=== PATIENT | male | born 1960 | race Caucasian/White ===

== ENCOUNTER 2017-07-13 16:25 | Emergency (ER) | payer MEDICAID ==
[~2017-07-13] VITALS: Ht 188 cm; Wt 81.5 kg
[2017-07-13] MEDS ORDERED: normal saline 1000ML IV soln IV ONE (16:55)
[2017-07-13] MEDS ORDERED: ondansetron/PF 4mg/2ml inj IV ONE (18:10)
[2017-07-13] MEDS ORDERED: normal saline 1000ML IV soln IVB ONE (18:10)
[2017-07-13] MEDS ORDERED: LORazepam 2 mg/ml vial IV ONE (18:10)
[2017-07-13] MEDS ORDERED: iohexol 300mg/ml 100ml inj. ONE (18:32)
[2017-07-13 18:46] VITALS: BP 115/64
== END 2017-07-13 19:23 | disposition left against medical advice (07) ==
LOC: ER 16:26
DX: G89.4 Chronic pain syndrome (principal); M79.601 Pain in right arm; F17.210 Nicotine dependence, cigarettes, uncomplicated; F15.10 Other stimulant abuse, uncomplicated; F11.10 Opioid abuse, uncomplicated; Z86.14 Personal history of Methicillin resistant Staphylococcus aureus infection; Z59.0 Homelessness; Z56.0 Unemployment, unspecified; Z88.8 Allergy status to other drugs, medicaments and biological substances
CPT/HCPCS: 99281; J7030; Q9967

== ENCOUNTER 2017-07-14 12:39 | Emergency (ER) | payer MEDICAID | END 2017-07-14 13:55 | disposition left against medical advice (07) | LOC: ER 12:40 | DX: Z53.21 Procedure and treatment not carried out due to patient leaving prior to being seen by health care provider (principal) ==

== ENCOUNTER 2017-11-19 23:13 | Emergency (ER) | payer MEDICAID ==
[~2017-11-19] VITALS: Ht 188 cm; Wt 85.5 kg
[~2017-11-19 23:13] MED LIST: PERM60CR19 TP
[2017-11-19 23:31] VITALS: BP 113/63
== END 2017-11-20 00:26 | disposition home or self-care (01) ==
LOC: ER 23:13
DX: M25.571 Pain in right ankle and joints of right foot (principal); F15.10 Other stimulant abuse, uncomplicated; F19.10 Other psychoactive substance abuse, uncomplicated; Z88.6 Allergy status to analgesic agent; Z88.8 Allergy status to other drugs, medicaments and biological substances
CPT/HCPCS: 73610; 99284; A6449

== ENCOUNTER 2017-11-20 21:20 | Emergency (ER) | payer MEDICAID ==
[~2017-11-20] VITALS: Ht 188 cm; Wt 85.5 kg
[2017-11-20 21:25] VITALS: BP 130/85
== END 2017-11-20 22:09 | disposition home or self-care (01) ==
LOC: ER 21:20
DX: S90.02XD Contusion of left ankle, subsequent encounter (principal); G89.29 Other chronic pain; F15.90 Other stimulant use, unspecified, uncomplicated; F11.90 Opioid use, unspecified, uncomplicated; Z86.14 Personal history of Methicillin resistant Staphylococcus aureus infection; Z56.0 Unemployment, unspecified; Z59.0 Homelessness; Z98.890 Other specified postprocedural states; Z88.8 Allergy status to other drugs, medicaments and biological substances; Z79.899 Other long term (current) drug therapy; Z60.2 Problems related to living alone; X58.XXXD Exposure to other specified factors, subsequent encounter
CPT/HCPCS: 99281

== ENCOUNTER 2017-12-13 12:10 | Emergency (ER) | payer MEDICAID ==
[~2017-12-13] VITALS: Ht 188 cm; Wt 88.6 kg
[2017-12-13 13:07] VITALS: BP 134/78
== END 2017-12-13 13:10 | disposition home or self-care (01) ==
LOC: ER 12:11
DX: S00.03XA Contusion of scalp, initial encounter (principal); G89.29 Other chronic pain; F15.90 Other stimulant use, unspecified, uncomplicated; F12.90 Cannabis use, unspecified, uncomplicated; Z86.14 Personal history of Methicillin resistant Staphylococcus aureus infection; Z98.890 Other specified postprocedural states; Z60.2 Problems related to living alone; Z59.0 Homelessness; Z56.0 Unemployment, unspecified; Z88.8 Allergy status to other drugs, medicaments and biological substances; Y08.89XA Assault by other specified means, initial encounter; Y93.89 Activity, other specified; Y92.89 Other specified places as the place of occurrence of the external cause; Y99.8 Other external cause status
CPT/HCPCS: 99284

== ENCOUNTER 2018-01-01 21:22 | Emergency (ER) | payer MEDICAID ==
[~2018-01-01] VITALS: Ht 188 cm; Wt 84.5 kg
[2018-01-01 21:37] VITALS: BP 120/75
== END 2018-01-01 23:31 | disposition left against medical advice (07) ==
LOC: ER 21:24
DX: M79.671 Pain in right foot (principal); M79.672 Pain in left foot; Z53.21 Procedure and treatment not carried out due to patient leaving prior to being seen by health care provider

== ENCOUNTER 2018-01-03 11:28 | Emergency (ER) | payer MEDICAID ==
[~2018-01-03] VITALS: Ht 188 cm; Wt 81.8 kg
[2018-01-03] MEDS ORDERED: vancomycin/NS 1 GM ADD-VANTAGE 250 ML IV ONE (12:20)
[2018-01-03] MEDS ORDERED: ceFAZolin 1gm IM kit IM ONE (12:25)
[2018-01-03] MEDS ORDERED: CEPH500C5 PO (12:30)
[2018-01-03] MEDS ORDERED: SULF1TAB49 PO (12:30)
[2018-01-03] MEDS ORDERED: cephalexin 500mg capsule PO ONE (13:20)
[2018-01-03] MEDS ORDERED: sulfamethoxazole/trimethoprim DS (800/160mg) tablet PO ONE (13:20)
[2018-01-03 13:36] VITALS: BP 130/76
== END 2018-01-03 13:38 | disposition home or self-care (01) ==
LOC: ER 11:28
DX: L03.032 Cellulitis of left toe (principal); G89.29 Other chronic pain; M54.9 Dorsalgia, unspecified; F15.90 Other stimulant use, unspecified, uncomplicated; F11.90 Opioid use, unspecified, uncomplicated; F17.200 Nicotine dependence, unspecified, uncomplicated; Z98.890 Other specified postprocedural states; Z86.14 Personal history of Methicillin resistant Staphylococcus aureus infection; Z59.0 Homelessness; Z56.0 Unemployment, unspecified; Z88.8 Allergy status to other drugs, medicaments and biological substances; Z88.6 Allergy status to analgesic agent
CPT/HCPCS: 73630; 99284

== ENCOUNTER 2018-06-16 23:19 | Emergency (ER) | payer MEDICAID ==
[~2018-06-16] VITALS: Ht 188 cm; Wt 68.1 kg
[~2018-06-16 23:19] MED LIST changes: +CEPH500C5 PO; -PERM60CR19 TP
[2018-06-17 01:21] VITALS: BP 126/84
[2018-06-17 01:33] LABS: ALANINE AMINOTRANSFERASE 31 U/L (12-78); ALBUMIN 3.1 G/DL (3.4-5.0); ALBUMIN/GLOBULIN RATIO 0.6 (1.1-1.5); ALKALINE PHOSPHATASE 85 IU/L (46-116); ANION GAP 10 (8-16); ASPARTATE AMINO TRANSFERASE 23 U/L (10-37); BILIRUBIN,TOTAL 0.3 MG/DL (0.1-1.0); BLOOD UREA NITROGEN 35 MG/DL (7-18); BUN/CREATININE RATIO 22.2 (5.4-32.0); CALCIUM 8.1 MG/DL (8.5-10.1); CHLORIDE 96 MMOL/L (99-107); CREATININE 1.58 MG/DL (0.60-1.10); GLUCOSE 107 MG/DL (70-104); POTASSIUM 3.9 MMOL/L (3.5-5.1); SODIUM 134 MMOL/L (135-145); TOTAL CARBON DIOXIDE 28.3 MMOL/L (24-32); TOTAL PROTEIN 8.3 G/DL (6.4-8.2); eGFR 45 ML/MIN
[2018-06-17 02:10] LABS: BASOPHILS # (AUTO) 0.2 X10'3 (0-0.2); BASOPHILS % (AUTO) 1.1 % (0-1); EOSINOPHILS # (AUTO) 0.1 X10'3 (0-0.9); EOSINOPHILS % (AUTO) 0.5 % (0-6); HEMATOCRIT 39.3 % (42.0-52.0); HEMOGLOBIN 12.8 g/dl (14.0-17.9); LYMPHOCYTES # (AUTO) 2.6 X10'3 (1.1-4.8); LYMPHOCYTES % (AUTO) 18.4 % (21-51); MEAN CORPUSCULAR HGB CONC 32.7 % (33.0-36.5); MEAN CORPUSCULAR VOLUME 82.8 FL (78-98); MONOCYTES # (AUTO) 0.5 X10'3 (0-0.9); MONOCYTES % (AUTO) 3.5 % (2-12); NEUTROPHILS % (AUTO) 76.5 % (42-75); RED BLOOD COUNT 4.74 X10'6 (4.70-6.10); RED CELL DISTRIBUTION WIDTH 13.1 % (11.5-14.5); WHITE BLOOD COUNT 14.4 X10'3 (4.5-11.0)
--- NOTE | 2018-06-17 04:08 | NUR ---
rec'd call from the lab that they are rejecting the platelet count documented in the chart and that they believe it is actually much higher than reported. pt is described to be a "platelet clumper" - they would like a redraw however pt has been d\\c'd. has been advised. no new orders or need to recontact pt.
== END 2018-06-17 02:24 | disposition home or self-care (01) ==
LOC: ER 23:21
DX: R11.10 Vomiting, unspecified (principal); G89.29 Other chronic pain; F15.90 Other stimulant use, unspecified, uncomplicated; F11.90 Opioid use, unspecified, uncomplicated; Z86.14 Personal history of Methicillin resistant Staphylococcus aureus infection; Z98.890 Other specified postprocedural states; Z60.2 Problems related to living alone; Z59.0 Homelessness; Z56.0 Unemployment, unspecified; Z88.8 Allergy status to other drugs, medicaments and biological substances; Z79.2 Long term (current) use of antibiotics
CPT/HCPCS: 36415; 80053; 85025; 99283

== ENCOUNTER 2018-07-08 12:18 | Emergency (ER) | payer MEDICAID ==
[~2018-07-08] VITALS: Ht 188 cm; Wt 78.8 kg
[~2018-07-08 12:18] MED LIST changes: +NAPR-56 PO; +PENI250T2 PO
[2018-07-08 12:31] VITALS: BP 117/72
== END 2018-07-08 13:55 | disposition left against medical advice (07) ==
LOC: ER 12:19
DX: K04.7 Periapical abscess without sinus (principal); M54.9 Dorsalgia, unspecified; Z53.21 Procedure and treatment not carried out due to patient leaving prior to being seen by health care provider

== ENCOUNTER 2018-07-17 02:33 | Emergency (ER) | payer MEDICAID ==
[~2018-07-17] VITALS: Ht 188 cm; Wt 80.0 kg
[~2018-07-17 02:33] MED LIST changes: -PENI250T2 PO
[2018-07-17 02:39] VITALS: BP 128/77
--- NOTE | 2018-07-17 04:05 | NUR ---
DR TALAMANTES AT BEDSIDE WITH PT
[2018-07-17] MEDS ORDERED: cephalexin 250mg capsule PO ONE (04:10)
[2018-07-17] MEDS ORDERED: DOXYCYCLINE 100MG CAPSULE PO STA (04:10)
[2018-07-17] MEDS ORDERED: ondansetron 4mg rapidly disintigrating tab PO ONE (04:10)
[2018-07-17] MEDS ORDERED: CEPH250T PO (04:12)
[2018-07-17] MEDS ORDERED: DOXY100C43 PO (04:12)
== END 2018-07-17 04:27 | disposition home or self-care (01) ==
LOC: ER 02:34
DX: L02.414 Cutaneous abscess of left upper limb (principal); G89.29 Other chronic pain; M54.9 Dorsalgia, unspecified; F12.90 Cannabis use, unspecified, uncomplicated; F15.90 Other stimulant use, unspecified, uncomplicated; Z56.0 Unemployment, unspecified; Z59.0 Homelessness; Z88.6 Allergy status to analgesic agent; Z88.8 Allergy status to other drugs, medicaments and biological substances
CPT/HCPCS: 99284

== ENCOUNTER 2018-07-30 19:09 | Emergency (ER) | payer MEDICAID | END 2018-07-30 22:27 | disposition left against medical advice (07) | LOC: ER 19:09 | DX: Z53.21 Procedure and treatment not carried out due to patient leaving prior to being seen by health care provider (principal) ==

== ENCOUNTER 2018-08-01 18:14 | Emergency (ER) | payer MEDICAID ==
[~2018-08-01] VITALS: Ht 188 cm; Wt 79.0 kg
[2018-08-01 19:01] VITALS: BP 131/81
[2018-08-01] MEDS ORDERED: METH-360 PO (20:32)
[2018-08-01] MEDS ORDERED: IBUP-1985 PO (20:32)
--- NOTE | 2018-08-01 20:40 | NUR ---
WALKED INTO PT ROOM "GET ME SOME DILAUDID STAT" HE IS LAUGHING. HE IS SITTING UP IN THE CHAIR COLORING WITH A GOLD SHARPIE HIS B/P CUFF AND WATCH.
== END 2018-08-01 20:51 | disposition home or self-care (01) ==
LOC: ER 18:15
DX: G89.29 Other chronic pain (principal); M54.5 Low back pain; F15.90 Other stimulant use, unspecified, uncomplicated; F11.90 Opioid use, unspecified, uncomplicated; Z88.6 Allergy status to analgesic agent; Z88.8 Allergy status to other drugs, medicaments and biological substances; Z59.0 Homelessness; Z56.0 Unemployment, unspecified; Z60.2 Problems related to living alone
CPT/HCPCS: 99283

== ENCOUNTER 2018-09-11 00:51 | Emergency (ER) | payer MEDICAID ==
[~2018-09-11] VITALS: Ht 188 cm; Wt 58.8 kg
[~2018-09-11 00:51] MED LIST changes: +IBUP-1985 PO; +METH-360 PO; -NAPR-56 PO
[2018-09-11 01:00] VITALS: BP 143/95
--- NOTE | 2018-09-11 01:54 | NUR ---
pt reports he has bugs in his body and they are tiny and black and he rarely sees then and they do not usually bite him, but on occasion do bite and it hurts. He denies any current bites. He states the bugs come out of every orface, his nose , ears, eyes, but crack. "I feel one right now...right on my mustache...I know you can't see it, but its there. Reports it has been going on for a few months. Gets worse when he gets out of the shower. pt is cooperative. awaiting brittany pham.
== END 2018-09-11 02:51 | disposition home or self-care (01) ==
LOC: ER 00:52
DX: L29.9 Pruritus, unspecified (principal); Z00.00 Encounter for general adult medical examination without abnormal findings; G89.29 Other chronic pain; F15.90 Other stimulant use, unspecified, uncomplicated; F11.90 Opioid use, unspecified, uncomplicated; Z86.14 Personal history of Methicillin resistant Staphylococcus aureus infection; Z98.890 Other specified postprocedural states; Z56.0 Unemployment, unspecified; Z60.2 Problems related to living alone; Z59.0 Homelessness; Z88.8 Allergy status to other drugs, medicaments and biological substances; Z79.899 Other long term (current) drug therapy
CPT/HCPCS: 99281

== ENCOUNTER 2018-10-01 10:31 | Emergency (ER) | payer MEDICAID ==
[~2018-10-01] VITALS: Ht 188 cm; Wt 75.4 kg
[2018-10-01 11:02] VITALS: BP 109/62
== END 2018-10-01 12:00 | disposition home or self-care (01) ==
LOC: ER 10:32
DX: Z00.00 Encounter for general adult medical examination without abnormal findings (principal); L02.414 Cutaneous abscess of left upper limb; G89.29 Other chronic pain; F15.90 Other stimulant use, unspecified, uncomplicated; F11.90 Opioid use, unspecified, uncomplicated; Z86.19 Personal history of other infectious and parasitic diseases; Z60.2 Problems related to living alone; Z56.0 Unemployment, unspecified; Z59.0 Homelessness; Z88.8 Allergy status to other drugs, medicaments and biological substances; Z79.899 Other long term (current) drug therapy
CPT/HCPCS: 99281

== ENCOUNTER 2018-10-02 20:07 | Emergency (ER) | payer MEDICAID | END 2018-10-02 20:13 | disposition left against medical advice (07) | LOC: ER 20:08 | DX: L02.91 Cutaneous abscess, unspecified (principal); Z53.21 Procedure and treatment not carried out due to patient leaving prior to being seen by health care provider ==

== ENCOUNTER 2018-10-03 10:08 | Emergency (ER) | payer MEDICAID ==
[~2018-10-03] VITALS: Ht 188 cm; Wt 77.3 kg
[2018-10-03 10:15] VITALS: BP 132/70
== END 2018-10-03 10:43 | disposition home or self-care (01) ==
LOC: ER 10:08
DX: F11.10 Opioid abuse, uncomplicated (principal); Z02.89 Encounter for other administrative examinations; G89.29 Other chronic pain; Z86.14 Personal history of Methicillin resistant Staphylococcus aureus infection; F15.90 Other stimulant use, unspecified, uncomplicated; Z88.6 Allergy status to analgesic agent; Z88.8 Allergy status to other drugs, medicaments and biological substances; Z79.899 Other long term (current) drug therapy; Z59.0 Homelessness; Z56.0 Unemployment, unspecified; Z60.2 Problems related to living alone
CPT/HCPCS: 99281

== ENCOUNTER 2018-10-26 19:19 | Emergency (ER) | payer MEDICAID ==
[~2018-10-26] VITALS: Ht 188 cm; Wt 81.8 kg
[2018-10-26 19:30] VITALS: BP 118/73
--- NOTE | 2018-10-26 21:27 | NUR ---
pt not in room when provider in to see him, appears to have eloped
== END 2018-10-26 21:45 | disposition left against medical advice (07) ==
LOC: ER 19:19
DX: H57.11 Ocular pain, right eye (principal); Z00.00 Encounter for general adult medical examination without abnormal findings; F15.90 Other stimulant use, unspecified, uncomplicated; F11.90 Opioid use, unspecified, uncomplicated; Z56.0 Unemployment, unspecified; Z60.2 Problems related to living alone; Z59.0 Homelessness; Z88.8 Allergy status to other drugs, medicaments and biological substances; Z79.899 Other long term (current) drug therapy
CPT/HCPCS: 99281

== ENCOUNTER 2019-10-06 18:05 | Emergency (ER) | payer MEDICAID ==
[~2019-10-06] VITALS: Ht 188 cm; Wt 79.5 kg
[~2019-10-06 18:05] MED LIST changes: -CEPH500C5 PO
[2019-10-06 18:25] VITALS: BP 105/87
== END 2019-10-06 19:40 | disposition left against medical advice (07) ==
LOC: ER 18:05
DX: L08.89 Other specified local infections of the skin and subcutaneous tissue (principal); Z53.21 Procedure and treatment not carried out due to patient leaving prior to being seen by health care provider

== ENCOUNTER 2019-11-15 16:11 | Emergency (ER) | payer MEDICAID ==
[~2019-11-15] VITALS: Ht 188 cm; Wt 70.0 kg
[2019-11-15 16:15] VITALS: BP 138/101
== END 2019-11-15 16:48 | disposition left against medical advice (07) ==
LOC: ER 16:12
DX: T14.8XXA Other injury of unspecified body region, initial encounter (principal); G89.29 Other chronic pain; F15.90 Other stimulant use, unspecified, uncomplicated; F11.90 Opioid use, unspecified, uncomplicated; Z59.0 Homelessness; Z60.2 Problems related to living alone; Z56.0 Unemployment, unspecified; Z86.14 Personal history of Methicillin resistant Staphylococcus aureus infection; Z98.890 Other specified postprocedural states; Z88.8 Allergy status to other drugs, medicaments and biological substances; Z79.899 Other long term (current) drug therapy; W57.XXXA Bitten or stung by nonvenomous insect and other nonvenomous arthropods, initial encounter; Y93.89 Activity, other specified; Y92.89 Other specified places as the place of occurrence of the external cause; Y99.8 Other external cause status
CPT/HCPCS: 99281

== ENCOUNTER 2019-12-07 10:14 | Emergency (ER) | payer MEDICAID ==
[~2019-12-07] VITALS: Ht 188 cm; Wt 83.2 kg
[2019-12-07 10:16] VITALS: BP 139/93
[2019-12-07] MEDS ORDERED: piperacillin/tazo 3.375gm/50ml 50 ML IV ONE (11:10)
[2019-12-07] MEDS ORDERED: normal saline 1000ML IV soln IV ONE (11:10)
[2019-12-07] MEDS ORDERED: AMOX-422 PO (12:01)
[2019-12-07] MEDS ORDERED: BACDS PO (12:01)
== END 2019-12-07 12:10 | disposition left against medical advice (07) ==
LOC: ER 10:15
DX: L08.9 Local infection of the skin and subcutaneous tissue, unspecified (principal); M79.89 Other specified soft tissue disorders; M79.675 Pain in left toe(s); R11.0 Nausea; G89.29 Other chronic pain; F15.90 Other stimulant use, unspecified, uncomplicated; F11.90 Opioid use, unspecified, uncomplicated; Z86.14 Personal history of Methicillin resistant Staphylococcus aureus infection; Z98.890 Other specified postprocedural states; Z60.2 Problems related to living alone; Z59.0 Homelessness; Z56.0 Unemployment, unspecified; Z88.8 Allergy status to other drugs, medicaments and biological substances; Z72.9 Problem related to lifestyle, unspecified; Z79.899 Other long term (current) drug therapy
CPT/HCPCS: 87070; 99283

== ENCOUNTER 2020-01-10 15:05 | Emergency (ER) | payer MEDICAID | END 2020-01-10 16:57 | disposition left against medical advice (07) | LOC: ER 15:05 | DX: L08.9 Local infection of the skin and subcutaneous tissue, unspecified (principal); Z53.21 Procedure and treatment not carried out due to patient leaving prior to being seen by health care provider ==

== ENCOUNTER 2020-01-16 14:40 | Emergency (ER) | payer MEDICAID ==
[~2020-01-16] VITALS: Ht 188 cm; Wt 77.3 kg
[2020-01-16 14:43] VITALS: BP 134/93
[2020-01-16] MEDS ORDERED: CHLO473M3 PO (15:44)
== END 2020-01-16 15:52 | disposition home or self-care (01) ==
LOC: ER 14:40
DX: K02.9 Dental caries, unspecified (principal); B89 Unspecified parasitic disease; R11.0 Nausea; G89.29 Other chronic pain; F15.90 Other stimulant use, unspecified, uncomplicated; F11.90 Opioid use, unspecified, uncomplicated; Z86.14 Personal history of Methicillin resistant Staphylococcus aureus infection; Z98.890 Other specified postprocedural states; Z60.2 Problems related to living alone; Z59.0 Homelessness; Z56.0 Unemployment, unspecified; Z88.8 Allergy status to other drugs, medicaments and biological substances; Z79.899 Other long term (current) drug therapy
CPT/HCPCS: 99282

== ENCOUNTER 2020-09-26 17:07 | Emergency (ER) | payer MEDICAID ==
[~2020-09-26] VITALS: Ht 188 cm; Wt 81.8 kg
[~2020-09-26 17:07] MED LIST changes: +CHLO473M3 PO
[2020-09-26 17:16] VITALS: BP 132/84
== END 2020-09-26 19:07 | disposition left against medical advice (07) ==
LOC: ER 17:07
DX: Z00.00 Encounter for general adult medical examination without abnormal findings (principal); Z53.21 Procedure and treatment not carried out due to patient leaving prior to being seen by health care provider

== ENCOUNTER 2020-09-28 16:16 | Emergency (ER) | payer MEDICAID ==
[~2020-09-28] VITALS: Ht 188 cm; Wt 81.8 kg
[2020-09-28 16:28] VITALS: BP 156/94
== END 2020-09-28 18:51 | disposition left against medical advice (07) ==
LOC: ER 16:17
DX: Z00.00 Encounter for general adult medical examination without abnormal findings (principal); Z53.21 Procedure and treatment not carried out due to patient leaving prior to being seen by health care provider

== ENCOUNTER 2020-11-08 15:17 | Emergency (ER) | payer MEDICAID ==
[~2020-11-08] VITALS: Ht 182.9 cm; Wt 84.1 kg
== END 2020-11-08 16:06 | disposition left against medical advice (07) ==
LOC: ER 15:17
DX: S00.83XA Contusion of other part of head, initial encounter (principal); F17.210 Nicotine dependence, cigarettes, uncomplicated; F15.10 Other stimulant abuse, uncomplicated; F11.10 Opioid abuse, uncomplicated; Z56.0 Unemployment, unspecified; Z59.0 Homelessness; Z88.8 Allergy status to other drugs, medicaments and biological substances; Z88.6 Allergy status to analgesic agent; Z79.899 Other long term (current) drug therapy; W18.39XA Other fall on same level, initial encounter; Y93.89 Activity, other specified; Y92.89 Other specified places as the place of occurrence of the external cause; Y99.8 Other external cause status
CPT/HCPCS: 99281

== ENCOUNTER 2021-01-21 15:09 | Emergency (ER) | payer MEDICAID ==
[~2021-01-21] VITALS: Ht 188 cm; Wt 80.0 kg
[2021-01-21 15:20] VITALS: BP 154/72
== END 2021-01-21 16:07 | disposition left against medical advice (07) ==
LOC: ER 15:10
DX: M25.532 Pain in left wrist (principal); Z53.21 Procedure and treatment not carried out due to patient leaving prior to being seen by health care provider
CPT/HCPCS: 73110

== ENCOUNTER 2023-07-28 13:15 | Emergency (ER) | payer MEDICAID ==
[~2023-07-28] VITALS: Ht 188 cm; Wt 90.9 kg
[2023-07-28] MEDS: ibuprofen tablet 400 MG TABLET PO ONE (14:46)
[2023-07-28] MEDS ORDERED: IBUP-1984 PO (14:58)
[2023-07-28 15:10] VITALS: BP 119/71; PULSE 67; RESP 18; TEMP 98.2; O2SAT 97
== END 2023-07-28 15:12 | disposition home or self-care (01) ==
LOC: ER 13:15
DX: M17.11 Unilateral primary osteoarthritis, right knee (principal); M25.561 Pain in right knee; F15.90 Other stimulant use, unspecified, uncomplicated; Z88.8 Allergy status to other drugs, medicaments and biological substances; Z88.6 Allergy status to analgesic agent; Z79.899 Other long term (current) drug therapy; Z79.1 Long term (current) use of non-steroidal anti-inflammatories (NSAID)
CPT/HCPCS: 73564; 99283

== ENCOUNTER 2023-07-30 10:05 | Emergency (ER) | payer MEDICAID ==
[~2023-07-30] VITALS: Ht 188 cm; Wt 83.2 kg
[~2023-07-30 10:05] MED LIST changes: +IBUP-1984 PO
[2023-07-30 10:41] VITALS: BP 121/69; PULSE 66; RESP 18; O2SAT 94
[2023-07-30 12:25] VITALS: TEMP 98.3
== END 2023-07-30 12:27 | disposition home or self-care (01) ==
LOC: ER 10:07
DX: M25.561 Pain in right knee (principal); F15.90 Other stimulant use, unspecified, uncomplicated; Z88.8 Allergy status to other drugs, medicaments and biological substances; Z79.1 Long term (current) use of non-steroidal anti-inflammatories (NSAID); Z79.899 Other long term (current) drug therapy
CPT/HCPCS: 29505; 99282; 99283

== ENCOUNTER 2023-08-31 17:33 | Emergency (ER) | payer MEDICAID ==
[~2023-08-31] VITALS: Ht 188 cm; Wt 81.2 kg
[~2023-08-31 17:33] MED LIST changes: -IBUP-1984 PO
[2023-08-31 17:34] VITALS: BP 137/81; PULSE 81; RESP 16; O2SAT 98
[2023-08-31 20:55] VITALS: TEMP 98.6
== END 2023-08-31 20:58 | disposition left against medical advice (07) ==
LOC: ER 17:33
DX: B37.0 Candidal stomatitis (principal); Z53.21 Procedure and treatment not carried out due to patient leaving prior to being seen by health care provider
CPT/HCPCS: 99281

== ENCOUNTER 2023-12-13 11:42 | Emergency (ER) | payer MEDICAID ==
[~2023-12-13] VITALS: Ht 188 cm; Wt 80.6 kg
[2023-12-13 12:18] VITALS: BP 122/78; PULSE 16; RESP 16; TEMP 98; O2SAT 98
== END 2023-12-13 12:20 | disposition home or self-care (01) ==
LOC: ER 11:43
DX: M70.21 Olecranon bursitis, right elbow (principal); F15.90 Other stimulant use, unspecified, uncomplicated; Z88.8 Allergy status to other drugs, medicaments and biological substances; Z88.6 Allergy status to analgesic agent; Z79.1 Long term (current) use of non-steroidal anti-inflammatories (NSAID); Z79.899 Other long term (current) drug therapy; Y93.89 Activity, other specified
CPT/HCPCS: 99282

== ENCOUNTER 2023-12-14 23:33 | Emergency (ER) | payer MEDICAID ==
[~2023-12-14] VITALS: Ht 188 cm; Wt 86.4 kg
[2023-12-14 23:48] VITALS: BP 149/84; PULSE 72; RESP 17; TEMP 98.5; O2SAT 97
== END 2023-12-15 01:10 | disposition left against medical advice (07) ==
LOC: ER 23:35
DX: B88.9 Infestation, unspecified (principal); Z53.21 Procedure and treatment not carried out due to patient leaving prior to being seen by health care provider

== ENCOUNTER 2023-12-27 17:20 | Emergency (ER) | payer MEDICAID ==
[~2023-12-27] VITALS: Ht 188 cm; Wt 79.8 kg
[~2023-12-27 17:20] MED LIST changes: +AMOX-117 PO; +CHLO473M13 PO; -CHLO473M3 PO
[2023-12-27 17:21] VITALS: BP 136/89; PULSE 67; RESP 16; TEMP 98; O2SAT 97
== END 2023-12-27 19:17 | disposition left against medical advice (07) ==
LOC: ER 17:20
DX: K04.7 Periapical abscess without sinus (principal); Z53.21 Procedure and treatment not carried out due to patient leaving prior to being seen by health care provider

== ENCOUNTER → 2025-03-15 | Emergency (ER) | payer MEDICAID ==
[~2025-03-15] VITALS: Ht 188 cm; Wt 77.9 kg
[~2025-03-15] MED LIST changes: -AMOX-117 PO; +CEPH-585 PO; +CLOT30CR19 TOP; -IBUP-1985 PO; +IBUP600T52 PO; +NYSPWD TP
[2025-03-15 14:53] VITALS: BP 179/106; PULSE 63; RESP 18; O2SAT 97
--- NOTE | 2025-03-15 15:20 | Physician Documentation ---
History of Present Illness ~ Chief Complaint: Foot pain Stated Complaint: FEET PAIN Primary Medical Doctor: [facility] HPI This is a 64-year-old male with history of athlete foot presents due to progressively worsening pain to bilateral feet, patient reports that he has been putting athlete's foot medication on what he is suspected to be athlete's foot though the pain as worse after uses this medication. Tetanus witin 5 years: Yes Medication Reconciliation Allergies: Coded Allergies: quetiapine (Verified Adverse Reaction, Intermediate, "Makes me lock up.", 06/22/24) ketorolac (Verified Adverse Reaction, Unknown, 06/22/24) Uncoded Allergies: MUSCLE RELAXERS (Adverse Reaction, Unknown, 07/25/16) Scheduled Cephalexin*Monohydrate* (Keflex*), 1 CAP PO Q6H Chlorhexidine Gluconate (Periogard), 15 ML PO Q12H Clotrimazole (Clotrimazole), 1 APPLIC TOP Q12H Clotrimazole (Clotrimazole), 1 APPLIC TOP Q8H Ibuprofen (Ibuprofen), 1 TAB PO Q8H Methocarbamol (Robaxin-750), 1 TAB PO Q12H Nystatin (NYSTOP powder), 1 APPLIC TP BID Past Medical History Past Medical History: Chronic Back Pain, MRSA Abscess Past Surgical History: orthopedic surgeries Alcohol Use: None Drug Use: methamphetamine, heroin Lives with: Alone Lives In: Homeless Occupation: unemployed Review of Systems ROS As stated above in the HPI, otherwise all systems are reviewed and negative. Physical Exam Vital Signs: Temperature: 97.0, Source: Temporal, Heart Rate: 63, Respiratory Rate: 18, BP: 179/106, Pulse Oximetry: 97, Weight: 77.900 Oxygen Flow Rate: 0 Physical Exam VITALS: Reviewed and as above. GENERAL: Alert, nontoxic appearing, no apparent distress. HEENT: RESPIRATORY: No increased work of breathing, no respiratory distress, speaking in full clear sentences CHEST: CV: BACK: GI: MUSCULOSKELETAL: SKIN: NEURO: PSYCH: Progress Results/Orders Results/Orders Vital Signs 03/15/25 03/15/25 14:53 16:10 Temp 97.0 97.0 Pulse 63 Resp 18 B/P (MAP) 179/106 Pulse Ox 97 O2 Flow Rate 0 Medical Decision Making Findings MSE performed in triage and patient returned to ED lobby by nursing staff to await available ED room General Diff Dx:Considerations: Include: Abrasion, Fracture, Laceration, Neurovascular injury, Sprain, Ulcer Toe Diff Dx:Considerations: Include: Cellulitis Departure Disposition: 30 STILL A PATIENT Impression: Primary Impression: Foot pain Qualified Codes: M79.671 - Pain in right foot; M79.672 - Pain in left foot Referrals: NO PRIMARY CARE PROVIDER (PCP) Prescriptions Cephalexin*Monohydrate* (Keflex*) 500 Mg Capsule 1 CAP PO Q6H for 10 Days, #40 CAP Prov: SABRINA BILL 03/15/25 Nystatin (NYSTOP powder) 100,000 Unit/Gram Gra 1 APPLIC TP BID, #50 GM Prov: SABRINA BILL 03/15/25 Clotrimazole (Clotrimazole) 1 % Cream..g. 1 APPLIC TOP Q8H for 7 Days, #45 GM 0 Refills apply to affected area(s) Prov: SABRINA BILL 03/15/25 Signature Scribe Signature: No Scribe Attestation: The note accurately reflects work and decisions made by me.KM Avalos 03/16/25 13:45 KALPESH HIGGINBOTHAM Mar 15, 2025 15:19
--- NOTE | 2025-03-15 15:51 | Physician Documentation ---
History of Present Illness ~ Chief Complaint: Foot pain Stated Complaint: FEET PAIN Time Seen by MD: 15:40 OK to notify your PCP?: Yes Primary Medical Doctor: [facility] Source: patient Mode of Arrival: POV Exam Limitations: no limitations HPI This is a 64-year-old gentleman comes in complaining of bilateral foot pain. The patient states he is feet are constantly wet for some reason the even when it is warm outside and he believes he has athlete's foot. He says he tried an athlete's foot cream but in his seems to make things worse. He denies trauma to the area. He denies alcohol, red meat or seafood intake. Tetanus witin 5 years: Yes Medication Reconciliation Allergies: Coded Allergies: quetiapine (Verified Adverse Reaction, Intermediate, "Makes me lock up.", 06/22/24) ketorolac (Verified Adverse Reaction, Unknown, 06/22/24) Uncoded Allergies: MUSCLE RELAXERS (Adverse Reaction, Unknown, 07/25/16) Scheduled Cephalexin*Monohydrate* (Keflex*), 1 CAP PO Q6H Chlorhexidine Gluconate (Periogard), 15 ML PO Q12H Clotrimazole (Clotrimazole), 1 APPLIC TOP Q12H Clotrimazole (Clotrimazole), 1 APPLIC TOP Q8H Ibuprofen (Ibuprofen), 1 TAB PO Q8H Methocarbamol (Robaxin-750), 1 TAB PO Q12H Nystatin (NYSTOP powder), 1 APPLIC TP BID Past Medical History Past Medical History: Chronic Back Pain, MRSA Abscess Past Surgical History: orthopedic surgeries Alcohol Use: None Drug Use: methamphetamine, heroin Lives with: Alone Lives In: Homeless Occupation: unemployed Physical Exam Vital Signs: Temperature: 97.0, Source: Temporal, Heart Rate: 63, Respiratory Rate: 18, BP: 179/106, Pulse Oximetry: 97, Weight: 77.900 Oxygen Flow Rate: 0 Pulse Oximetry Reflects: adequate oxygenation General Appearance: alert, WD/WN, no apparent distress Feet To inspection of the both feet the plantar aspects of the feet and toes or wet and macerated. The patient has bunions bilaterally. The patient also has calluses on the toes. That has cracks and fissures between the toes of the right foot. No erythema, edema or discharge. No ascending lymphangitis. No pain with squeezing the midfoot bilaterally. No range of motion deficits of the bilateral ankles or digits. Bilateral dorsalis pedis pulses 2+ and equal. Cap refill less than 2 seconds and brisk in the digits of the bilateral lower extremities. Progress Results/Orders Results/Orders Vital Signs 03/15/25 03/15/25 14:53 16:10 Temp 97.0 97.0 Pulse 63 Resp 18 B/P (MAP) 179/106 Pulse Ox 97 O2 Flow Rate 0 Medical Decision Making Findings We are going to place the patient on Keflex 500 mg 4 times a day for 10 days and give him clotrimazole athlete's foot cream. I also told him he should use medicated powder in his boots to help keep his feet dry. I told him to wash his feet thoroughly, dry well between the toes and we are comfortable fitting shoes. Follow up with the primary care physician for Podiatry referral to address the bunion. Return to the ER for any worsening or concerning symptoms Additional Comment Tinea pedis. Gout. Cellulitis bilateral lower extremities. Bunion. Departure Disposition: HOME / SELF CARE / HOMELESS Impression: Primary Impression: Tinea pedis Condition: Stable Additional Instructions: Use the powder, cream and oral antibiotics as directed. Keep your clean dry and clean. Follow up with the primary care physician for recheck. I gave contact information for a local cryptologist. Return to the ER for any worsening or concerning symptoms. Referrals: NO PRIMARY CARE PROVIDER (PCP) SHEBA LOPEZ DPM Prescriptions Cephalexin*Monohydrate* (Keflex*) 500 Mg Capsule 1 CAP PO Q6H for 10 Days, #40 CAP Prov: SABRINA BILL 03/15/25 Nystatin (NYSTOP powder) 100,000 Unit/Gram Gra 1 APPLIC TP BID, #50 GM Prov: SABRINA BILL 03/15/25 Clotrimazole (Clotrimazole) 1 % Cream..g. 1 APPLIC TOP Q8H for 7 Days, #45 GM 0 Refills apply to affected area(s) Prov: SABRINA BILL 03/15/25 Signature Scribe Signature: No scribe Attestation: The note accurately reflects work and decisions made by me.Sabrina MIRZA 03/15/25 15:59 SABRINA BILL Mar 15, 2025 15:51 KEYSHA ESPINOZA MD Mar 16, 2025 07:56
[2025-03-15 16:10] VITALS: TEMP 97
== END | disposition home or self-care (01) ==
LOC: ER 14:49
DX: M79.672 Pain in left foot (principal); M79.671 Pain in right foot; F15.90 Other stimulant use, unspecified, uncomplicated; F11.90 Opioid use, unspecified, uncomplicated; G89.29 Other chronic pain; Z86.14 Personal history of Methicillin resistant Staphylococcus aureus infection; Z88.8 Allergy status to other drugs, medicaments and biological substances; Z79.899 Other long term (current) drug therapy; Z60.2 Problems related to living alone; Z56.0 Unemployment, unspecified; Z59.02 Unsheltered homelessness; Z98.890 Other specified postprocedural states
CPT/HCPCS: 99283

== ENCOUNTER 2025-05-01 14:18 | Emergency (ER) | payer MEDICAID ==
[~2025-05-01] VITALS: Ht 188 cm; Wt 78.5 kg
[~2025-05-01 14:18] MED LIST changes: -CEPH-585 PO
[2025-05-01 14:26] VITALS: BP 158/100; PULSE 63; RESP 16; TEMP 97.6; O2SAT 99
--- NOTE | 2025-05-01 18:10 | Physician Documentation ---
History of Present Illness ~ Chief Complaint: Foot pain Stated Complaint: L FOOT INFECTION Time Seen by MD: 18:01 Primary Medical Doctor: n/a HPI Patient presents to the emergency room for evaluation of bilateral foot pain. He is homeless in his problems taking care of that has feet and keeping them dry. Use using Tinactin on them. Denies history of diabetes Tetanus witin 5 years: Yes Medication Reconciliation Allergies: Coded Allergies: quetiapine (Verified Adverse Reaction, Intermediate, "Makes me lock up.", 06/22/24) ketorolac (Verified Adverse Reaction, Unknown, 06/22/24) Uncoded Allergies: MUSCLE RELAXERS (Adverse Reaction, Unknown, 07/25/16) Scheduled Chlorhexidine Gluconate (Periogard), 15 ML PO Q12H Clotrimazole (Clotrimazole), 1 APPLIC TOP Q12H Clotrimazole (Clotrimazole), 1 APPLIC TOP Q8H Ibuprofen (Ibuprofen), 1 TAB PO Q8H Methocarbamol (Robaxin-750), 1 TAB PO Q12H Nystatin (NYSTOP powder), 1 APPLIC TP BID Past Medical History Past Medical History: Chronic Back Pain, MRSA Abscess Past Surgical History: orthopedic surgeries Alcohol Use: None Drug Use: methamphetamine, heroin Lives with: Alone Lives In: Homeless Occupation: unemployed Review of Systems ROS All review of systems negative except as per HPI Physical Exam Vital Signs: Temperature: 97.6, Source: Oral, Heart Rate: 63, Respiratory Rate: 16, BP: 158/100, Pulse Oximetry: 99, Weight: 78.500 Oxygen Flow Rate: 0 Physical Exam General: Patient is awake, alert, oriented x4 in no acute distress Head: Normocephalic and atraumatic. Eyes: Conjunctival normal. EOMI. PERRL. ENT: Mucous membranes moist. Neck: Supple, trachea is midline. Chest: Clear to auscultation bilaterally without rales, rhonchi, or wheezes. There is no accessory muscle use or retractions. Cardiac: RRR without murmurs, gallops, or rubs. Extremities: Bilateral feet are water logged. No erythema. Neurovascularly intact. Good plethora. Some dried Tinactin between toes. Progress Results/Orders Results/Orders Vital Signs 05/01/25 14:26 Temp 97.6 Pulse 63 Resp 16 B/P (MAP) 158/100 Pulse Ox 99 O2 Flow Rate 0 Medical Decision Making Additional information obtaine: old records Findings Patient presents to the emergency room with bilateral foot pain as per HPI. Differentials include but are not limited to trench foot tinea pedis, trench foot, cellulitis, vascular insufficiency. Physical exam is reassuring. Unfortunately it is raining outside and patient is homeless. He has been instructed to do his best to keep his feet dry and to continue applying Tinactin. General Diff Dx:Considerations: Include: Abrasion, Contusion, Fracture, Hematoma, Laceration, Malunion, Neurovascular injury, Open fracture, Sprain, Ulcer, Other Knee Diff Dx:Considerations: Include: Abrasion, Arthritis, Contusion, DJD, Fracture-femur, Fracture-fibula, Fracture-patella, Fracture-tibia, Gout, Hematoma, Laceration, Meniscus injury, Neurovascular injury, Open fracture, Rheumatoid arthritis, Septic, Sprain, Sprain-MCL, Sprain-LCL, Sprain-ACL, Sprain-PCL, Other Ankle Diff Dx:Considerations: Include: Abrasion, Arthritis, Contusion, DJD, Fr acture-metatarsal, Fracture-fibula, Fracture-tarsal, Fracture-tibia, Gout, Hematoma, Laceration, Malunion, Neurovascular injury, Nonunion, Open fracture, Osteomyelitis, Rheumatoid arthritis, Sprain, Septic, Ulcer, Other Foot Diff Dx:Considerations: Include: Abrasion, Arthritis, Cellulitis, Contusion, Dislocation, DJD, Fracture-metatarsal, Fracture-phalynx, Fracture- tarsal, Gout, Hematoma, Ingrown toenail, Laceration, Malunion, Neurovascular injury, Open fracture, Paronychia, Puncture, Rheumatoid, Sprain, Septic, Subungual hematoma, Ulcer, Other Toe Diff Dx:Considerations: Include: Abrasion, Cellulitis, Contusion, Dislocation, Felon, Fracture, Hematoma, Laceration, Neurovascular injury, Open fracture, Paronychia, Subungual hematoma, Other Departure Disposition: 01 HOME / SELF CARE / HOMELESS Impression: Primary Impression: Trench foot Condition: Stable Discharge Instructions: Foot Care, Adult Additional Instructions: Continue applying Tinactin. Do your best to keep your feet dry. Referrals: NO PRIMARY CARE PROVIDER (PCP) Signature Scribe Signature: No scribe Attestation: The note accurately reflects work and decisions made by me.Keenan Rodriguez MD 05/01/25 18:21 KEENAN RODRIGUEZ MD May 01, 2025 18:10
== END 2025-05-01 18:28 | disposition home or self-care (01) ==
LOC: ER 14:19
DX: T69.021A Immersion foot, right foot, initial encounter (principal); T69.022A Immersion foot, left foot, initial encounter; F15.90 Other stimulant use, unspecified, uncomplicated; F11.90 Opioid use, unspecified, uncomplicated; X58.XXXA Exposure to other specified factors, initial encounter; Y93.89 Activity, other specified; Y92.89 Other specified places as the place of occurrence of the external cause; Y99.8 Other external cause status
CPT/HCPCS: 99282